=== PATIENT | male | born 1970 | race Caucasian/White ===

== ENCOUNTER 2017-01-04 08:35 | Emergency (ER) | payer BC ==
[~2017-01-04] VITALS: Ht 182.9 cm; Wt 93.5 kg
[~2017-01-04 08:35] MED LIST: ASPI-650 PO; ATEN100T PO; FLEC100T PO; LOSA50TA6 PO; POTA20PA PO
[2017-01-04] MEDS ORDERED: ALPR0.25 PO (09:28)
[2017-01-04 09:46] LABS: HEMOGLOBIN 16.1 g/dL (13.7-18.0)
[2017-01-04 09:52] LABS: BLOOD UREA NITROGEN 14 mg/dL (7-18)
[2017-01-04 10:42] VITALS: BP 128/74
[2017-01-04] MEDS ORDERED: LORazepam 1MG TABLET ONE (10:49)
[2017-01-04] MEDS ORDERED: LORazepam 1MG TABLET PO ONE (11:00)
== END 2017-01-04 10:57 | disposition home or self-care (01) ==
LOC: ED 10:40
DX: R00.2 Palpitations (principal); F41.1 Generalized anxiety disorder; I10 Essential (primary) hypertension; I48.91 Unspecified atrial fibrillation
CPT/HCPCS: 36415; 80048; 82040; 83735; 84484; 85025; 93005

== ENCOUNTER 2017-04-02 13:00 | Emergency (ER) | payer BC ==
[~2017-04-02] VITALS: Ht 182.9 cm; Wt 92.8 kg
[~2017-04-02 13:00] MED LIST changes: +ALPR0.25 PO
[2017-04-02 15:10] VITALS: BP 121/82
== END 2017-04-02 15:36 | disposition home or self-care (01) ==
LOC: ED 14:13
DX: J70.5 Respiratory conditions due to smoke inhalation (principal); R51 Headache; I10 Essential (primary) hypertension; I48.91 Unspecified atrial fibrillation
CPT/HCPCS: 99283